=== PATIENT | male | born 1990 | race Caucasian/White ===

== ENCOUNTER 2016-07-14 08:16 | Emergency (ER) | payer OTHER ==
[~2016-07-14] VITALS: Ht 170.2 cm; Wt 85.5 kg
[~2016-07-14 08:16] MED LIST: NEOM28OI TOP
[2016-07-14 08:27] VITALS: Ht 170.2 cm; Wt 85.5 kg
[2016-07-14] MEDS ORDERED: KETOROLAC 30 MG INJ IM STA (08:49)
--- NOTE | 2016-07-14 09:03 | ERD ---
ER Documentation Chief Complaint Date/Time DATE: 07/14/16 TIME: 09:00 Chief Complaint RT KNEE PAIN AFTER INJURY WHILE PLAYING BASEBALL LAST NIGHT HPI Patient is a 26-year-old male who presents to the ED with right knee pain after sustaining an injury playing baseball last night. He states that he was sliding onto base and felt his knees stiffen up and felt pain on the inside of his knee. He states that he has pain when he walks however he is able to bend his knee. He states that he used ice last night. Denies any pain above or below his knee joint. Denies numbness or tingling. Denies radiation of pain. Denies hitting his head, passing out or losing consciousness. No other complaints. ROS All systems reviewed and are negative except as per history of present illness. Medications Home Meds Active Scripts Naproxen* (Naprosyn*) 500 Mg Tablet, 500 MG PO BID Y for PAIN AND/OR INFLAMMATION, #30 TAB Prov:BECKA CHAPIN PA-C 07/14/16 Neomycin-Bacitrac Zinc-Polymyxin (Triple Antibiotic Ointment*) 28.35 Gm Oint..gm., 1 APPLIC TOP BID for 7 Days, EA Prov:BREN KO PA-C 11/07/15 Reported Medications [None] No Conflict Check 10/20/10 Allergies Allergies: Coded Allergies: No Known Drug Allergies (Verified Allergy, Unknown, 11/07/15) PMhx/Soc Hx Alcohol Use: Yes (drunk alcohol last thursday) Hx Substance Use: No Hx Tobacco Use: No Smoking Status: Former smoker FmHx Family History: No coronary disease, No diabetes, No other Physical Exam Vitals Vital Signs Date Time Temp Pulse Resp B/P Pulse Ox O2 Delivery O2 Flow Rate FiO2 07/14/16 08:27 98.4 53 16 134/92 98 Physical Exam GENERAL: Well-developed, well-nourished male. Appears in no acute distress. LUNG: Clear to auscultation bilaterally. No rhonchi, wheezing, rales or coarse breath sounds. HEART: Regular rate and rhythm. No murmurs, rubs or gallops. Extremities: Equal pulses bilaterally. No peripheral clubbing, cyanosis or edema. No unilateral leg swelling. No pain above or below knee joint. Slight tenderness to the medial aspect of the knee. Negative Lockman test. Slight tenderness with Araceli's test. No step-offs or deformities. No open wounds or laceration. NEUROLOGIC: Alert and oriented. Moving all four extremities. 5/5 strength in all extremities. Normal speech. Steady gait. SKIN: Normal color. Warm and dry. No rashes or lesions. Capillary refill < 2 seconds Results 24 hrs Current Medications Medications (Trade) Dose Ordered Sig/Molly Route PRN Reason Start Time Stop Time Status Last Admin Dose Admin Ketorolac Tromethamine (Toradol) 30 mg ONCE STAT IM 07/14/16 08:49 07/14/16 08:50 DC Procedures/MDM ER COURSE: I kept the patient and/or family informed of laboratory and diagnostic imaging results throughout the emergency room course. IMAGING STUDIES [place] [id number] Radiology Main Line: [phone] DIAGNOSTIC IMAGING REPORT Patient: JOHN MCCRACKEN : 1990 Age: 26 Sex: M MR #: [id number] DOS: 07/14/16 0847 Ordering MD: BECKA CHAPIN PA-C Location: [facility] Room/Bed: PROCEDURE: CR Right Knee CLINICAL INDICATION: Knee pain status post baseball injury TECHNIQUE: An AP, a tunnel and a lateral view were submitted COMPARISON: None FINDINGS: Osseous Structures: The osseous elements appear well mineralized and intact. Join Spaces: The joint spaces are well maintained. No joint effusion is identified. Soft Tissues: The soft tissues appear unremarkable. IMPRESSION: Unremarkable right knee. Physician Sadiq Date Time Electronically viewed and signed by Physician Sadiq on 07/14/2016 09:11 RH/ CC: BECKA CHAPIN PA-C MEDICATIONS Toradol 30 mg IM. Tolerated well with no adverse reaction. [Pradip wrap Assessment: Neurovascularly intact post pradip wrap placement with good fit.] Patient's extremity symptoms have stabilized while they have been evaluated in the department and are appropriate for outpatient follow up. MEDICAL DECISION MAKING: This is a 26-year-old male who presents with right knee pain 1 day after sustaining an injury playing baseball yesterday. Vital signs were reviewed. Patient is afebrile. Patient is not hypoxic. Patient is not toxic or ill- appearing. Patient has knee pain of unknown etiology, likely MCL or meniscus tear. Low suspicion for dislocation, fracture, septic joint, compartment syndrome, osteomyelitis, avascular necrosis, DVT, Achilles tendon rupture, cellulitis. At this time, unable to rule out any tendon and ligament injuries. DISCHARGE: At this time, patient is stable for discharge and outpatient management with no new complaints during the ER course. Patient was sent home with Pradip Bello and a copy of imaging reports with his CD. Names of orthopedics were given to patient.. Patient will be discharged home with instructions to recheck for new or worsening symptoms such as fever, nausea, weakness, LOC and to follow up with primary care in the next 1-2 days. Patient was advised to return to the ER for any new or worsening symptoms. Plan was discussed and patient and/ or family understands and agrees. Home instructions were given. Departure Diagnosis: Primary Impression: Knee pain Laterality: right Chronicity: acute Qualified Code: M25.561 - Acute pain of right knee Condition: Stable BECKA CHAPIN PA-C Jul 14, 2016 09:03
--- NOTE | 2016-07-14 09:12 | RADRPT ---
PROCEDURE: CR Right Knee CLINICAL INDICATION: Knee pain status post baseball injury TECHNIQUE: An AP, a tunnel and a lateral view were submitted COMPARISON: None FINDINGS: Osseous Structures: The osseous elements appear well mineralized and intact. Join Spaces: The joint spaces are well maintained. No joint effusion is identified. Soft Tissues: The soft tissues appear unremarkable. IMPRESSION: Unremarkable right knee. Physician Sadiq Date Time Electronically viewed and signed by Physician Sadiq on 07/14/2016 09:11 /
[2016-07-14] MEDS ORDERED: NAPR-260 PO (09:16)
== END 2016-07-14 09:30 | disposition home or self-care (01) ==
LOC: FTE 08:16
DX: S89.91XA Unspecified injury of right lower leg, initial encounter (principal); X58.XXXA Exposure to other specified factors, initial encounter; Z87.891 Personal history of nicotine dependence
CPT/HCPCS: 73562; J1885; Z7502